=== PATIENT | female | born 1960 | race Caucasian/White ===

== ENCOUNTER 2016-06-30 22:32 | Observation (INO) | payer MEDICARE ==
[2016-06-30] MEDS ORDERED: ONDANSETRON HCL IV 4 MG/2 ML VIAL IV ONE (23:05)
[2016-06-30] MEDS ORDERED: 0.9 % SODIUM CHLORIDE 1,000 ML BAG IV ONE ×2 (23:05→23:57)
[2016-06-30 23:27] LABS: BASO % 0.1 % (0-6); EOS % 0.3 % (0-6); GRAN % 58.1 % (47-80); HEMATOCRIT 38.5 % (35.0-47.0); HEMOGLOBIN 12.4 gm/dl (11.6-16.0); LYMPH % 35.1 % (16-45); MEAN CELL VOLUME 87.3 fl (81-97); MEAN CORPUSCULAR HEMOGLOBIN 28.1 pg (27-33); MEAN CORPUSCULAR HGB CONC 32.2 g/dl (32-36); MONO % 6.4 % (0-9); PLATELET COUNT 324 K/uL (130-400); RED BLOOD COUNT 4.41 M/uL (3.80-5.40); RED CELL DISTRIBUTION WIDTH 14.6 % (11.5-14.5); WHITE BLOOD COUNT W/O DIFF 6.7 K/uL (4.2-12.2)
--- NOTE | 2016-06-30 23:29 | Emergency Department Record ---
History of Present Illness - General Chief complaint: Vomiting Stated complaint: COUGH AND VOMITING Time Seen by Provider: 06/30/16 23:05 Mode of Arrival: Ambulatory - History of Present Illness Initial comments: The patient states that she has had a cough for over a week which is not improving. Today she began having vomiting and diarrhea TNTC episodes of both since 2 p.m. and is feeling exhausted. She has a rash on the ventral abdomen and upper thighs which has been there a few days. She denies a history of MRSA. MD complaint: Diarrhea, Nausea, Vomiting Onset/Timin -: Hour(s) Description of Vomiting: Bilious Associated Abdominal Pain: Yes Severity scale (1-10): 7 Quality: Cramping Context: Sick contacts Associated Symptoms: Nausea/vomiting - Related Data Home Medications Medication Instructions Recorded Confirmed Last Taken Cranberry 500 mg PO DAILY 04/11/14 06/30/16 07/28/15 Diphenhydramine HCl [Benadryl] 25 mg PO BID 04/11/14 06/30/16 07/28/15 Multivitamin [Multi-Vitamin Daily] 1 each PO DAILY 04/11/14 06/30/16 07/27/15 Aspirin [Adult Low Dose Aspirin EC] 81 mg PO DAILY 06/30/16 06/30/16 Unknown Previous Rx's Medication Instructions Recorded Silver Sulfadiazine [Ssd] 1 apply TP BID #400 gm 04/29/16 Allergies Allergy/AdvReac Type Severity Reaction Status Date / Time ceftriaxone sodium Allergy Intermediate ITCHING Unverified 05/10/16 13:32 [From Rocephin] nitrofurantoin Allergy Intermediate RASH Unverified 05/10/16 13:32 [From Macrobid] nitrofurantoin Allergy Intermediate RASH Unverified 05/10/16 13:32 macrocrystalline [From Macrobid] Penicillins Allergy Mild ANAPHYLAXIS Unverified 05/10/16 13:32 Travel Screening - Travel/Exposure Within Last 30 Days Have you traveled within the last 30 days?: No Review of Systems Reviewed: No additional complaints except as noted below Constitutional: Reports: As per HPI. Denies: Chills, Fever, Malaise, Night sweats, Weakness, Weight change Eyes: Reports: As per HPI. Denies: Eye discharge, Eye pain, Photophobia, Vision change ENT: Reports: As per HPI. Denies: Congestion, Dental pain, Ear pain, Epistaxis , Hearing loss, Throat pain Respiratory: Reports: As per HPI. Denies: Cough, Dyspnea, Hemoptysis, Stridor, Wheezes Cardiovascular: Reports: As per HPI. Denies: Arrhythmia, Chest pain, Dyspnea on exertion, Edema, Murmurs, Orthopnea, Palpitations, Paroxysmal nocturnal dyspnea, Rheumatic Fever, Syncope Endocrine: Reports: As per HPI. Denies: Fatigue, Heat or cold intolerance, Polydipsia, Polyuria Gastrointestinal: Reports: As per HPI. Denies: Abdominal pain, Constipation, Diarrhea, Hematemesis, Hematochezia, Melena, Nausea, Vomiting Genitourinary: Reports: As per HPI. Denies: Abnormal menses, Discharge, Dyspareunia, Dysuria, Frequency, Hematuria, Incontinence, Retention, Urgency Musculoskeletal: Reports: As per HPI. Denies: Arthralgia, Back pain, Gout, Joint swelling, Myalgia, Neck pain Skin: Reports: As per HPI. Denies: Bruising, Change in color, Change in hair/ nails, Lesions, Pruritus, Rash Neurological: Reports: As per HPI. Denies: Abnormal gait, Confusion, Headache, Numbness, Paresthesias, Seizure, Tingling, Tremors, Vertigo, Weakness Psychiatric: Reports: As per HPI. Denies: Anxiety, Auditory hallucinations, Depression, Homicidal thoughts, Suicidal thoughts, Visual hallucinations Hematological/Lymphatic: Reports: As per HPI. Denies: Anemia, Blood Clots, Easy bleeding, Easy bruising, Swollen glands Past Medical History - SOCIAL HISTORY Smoking Status: Former smoker Alcohol Use: None Drug Use: None - RESPIRATORY Hx Respiratory Disorders: Yes Hx Sleep Apnea: Yes Hx of CPAP: Yes - CARDIOVASCULAR Hx Cardio Disorders: Yes Hx Cardiac Cath: Yes Hx Hypertension: Yes - NEURO Hx Neuro Disorders: Yes Hx Headaches: Yes - GI Hx GI Disorders: No - Hx Genitourinary Disorders: No - ENDOCRINE Hx Endocrine Disorders: Yes Hx Diabetes: Yes - MUSCULOSKELETAL Hx Musculoskeletal Disorders: Yes Comment:: hip problems - PSYCH Hx Psych Problems: Yes Hx Depression: Yes - HEMATOLOGY/ONCOLOGY Hx Hematology/Oncology Disorders: No Family Medical History Any Significant Family History?: Yes Hx Diabetes: Father, Mother, Brother/Sister Hx Heart Disease: Father, Mother Hx Kidney Disease: Father, Mother Hx Resp Disorders: Brother/Sister Physical Exam - General General Appearance: Alert, Oriented x3, Cooperative, Mild distress - Head Head exam: Normal inspection - Eye Eye exam: Normal appearance, PERRL Pupils: Normal accommodation - ENT ENT exam: Normal exam, Mucous membranes dry, Normal external ear exam, Normal orophraynx, TM's normal bilaterally Ear exam: Normal external inspection. negative: External canal tenderness Nasal Exam: Normal inspection. negative: Discharge, Sinus tenderness Mouth exam: Normal external inspection, Tongue normal Teeth exam: Normal inspection. negative: Dental caries Throat exam: Normal inspection. negative: Tonsillar erythema, Tonsillar exudate - Neck Neck exam: Normal inspection, Full ROM. negative: Tenderness - Respiratory Respiratory exam: Normal lung sounds bilaterally. negative: Respiratory distress - Cardiovascular Cardiovascular Exam: Regular rate, Normal rhythm, Normal heart sounds - GI/Abdominal GI/Abdominal exam: Soft, Normal bowel sounds. negative: Tenderness - Rectal Rectal exam: Deferred - exam: Deferred - Extremities Extremities exam: Normal inspection, Full ROM, Normal capillary refill. negative: Tenderness - Back Back exam: Reports: Normal inspection, Full ROM. Denies: Muscle spasm, Rash noted, Tenderness - Neurological Neurological exam: Alert, Normal gait, Oriented X3, Reflexes normal - Psychiatric Psychiatric exam: Normal affect, Normal mood - Skin Skin exam: Dry, Intact, Normal color, Rash (discrete lesions, a few with central pustules noted. No diffuse cellulitis.), Warm Course Vital Signs 06/30/16 22:51 Temperature 97.5 F L Pulse Rate 90 Respiratory 20 Rate Blood Pressure 113/81 Pulse Ox 96 - Reevaluation(s) Reevaluation #1: After 1 liter NS her headache has resolved and her nausea is gone. Second liter ordered along with CXR. 07/01/16 00:38 Reevaluation #2: Patient continues to be weak and uncomfortable. She states her is unable to care for her at home and she is too weak to ambulate. Will obs her and give Iv clindamycin for possible MRSA rash--culture still pending currently. 07/01/16 02:10 Medical Decision Making - Management Options MDM Management: Additional Work-up Planned (e.g. ADM/Transfer/OP Study) (OBS.) - Data Complexity MDM Data: Labs Ordered and/or Reviewed, X-Ray Ordered and/or Reviewed (CXR two view: Neg per ED physician.) - Lab Data Result diagrams: 06/30/16 23:15 06/30/16 23:15 Disposition Disposition: Admit Clinical Impression: Dehydration, Rash, Bronchitis Nausea & vomiting Qualifiers: Vomiting type: unspecified Vomiting Intractability: non-intractable Qualified Code(s): R11.2 - Nausea with vomiting, unspecified Diabetes Qualifiers: Diabetes mellitus type: type 1 Diabetes mellitus complication status: with unspecified complications Qualified Code(s): E10.8 - Type 1 diabetes mellitus with unspecified complications Disposition: Still a Patient at [facility] Decision to Admit: Admit from ER Decision to Admit Date: 07/01/16 Decision to Admit Time: 02:15 Accepting Physician: Dr. Hoover/ Sneha Tovar Condition: (2) Stable Forms: Patient Portal Access
[2016-06-30 23:33] LABS: ACETONE,SERUM NEGATIVE (NEGATIVE)
[2016-06-30 23:37] LABS: BLOOD UREA NITROGEN 17 mg/dL (7-17); CARBON DIOXIDE 21.4 mmol/L (22-30); CREATININE 0.8 mg/dL (0.52-1.04); EST GLOMERULAR FILTRATION RATE > 60 ml/min; GLUCOSE,RANDOM 195 mg/dL (70-110)
[2016-06-30 23:38] LABS: ALBUMIN 4.4 gm/dL (3.5-5.0); ALKALINE PHOSPHATASE 101 U/L (38-126); ALT/SGPT 61 U/L (9-52); ANION GAP 14.6 (7-16); AST/SGOT 28 U/L (14-36); BILIRUBIN,TOTAL 0.48 mg/dL (0.2-1.3); LACTIC ACID 3.7 mmol/L (0.7-2.1); LIPASE 31 U/L (23-300); TOTAL PROTEIN 7.5 gm/dL (6.3-8.2)
[2016-06-30] MEDS ORDERED: KETOROLAC 30 MG/ML VIAL IVP ONE (23:41)
[2016-07-01 00:24] LABS: URINE APPEARANCE CLEAR; URINE BILIRUBIN NEGATIVE (NEGATIVE); URINE BLOOD NEGATIVE (NEGATIVE); URINE COLOR YELLOW; URINE GLUCOSE (UA) NEGATIVE (NEGATIVE); URINE KETONE NEGATIVE (NEGATIVE); URINE LEUKOCYTE ESTERASE NEGATIVE (NEGATIVE); URINE NITRITE NEGATIVE (NEGATIVE); URINE UROBILINOGEN 0.2 E.U./dL (0.20 - 1.00)
[2016-07-01] MEDS ORDERED: SERTRALINE HCL 50 MG TABLET PO SCH (02:30)
[2016-07-01] MEDS ORDERED: ONDANSETRON HCL IV 4 MG/2 ML VIAL IVP PRN (02:54)
[2016-07-01] MEDS ORDERED: CLINDAMYCIN 600MG/4ML VIAL 600 MG in 0.9 % SODIUM CHLORIDE 100ML 100 ML IV SCH (02:54)
[2016-07-01] MEDS: 0.9 % SODIUM CHLORIDE 1000ML 1,000 ML IV PRN ×2 (03:26→12:39)
[2016-07-01] MEDS ORDERED: METFORMIN HCL 1000 MG PO SCH (10:00)
[2016-07-01] MEDS ORDERED: CRANBERRY 500 MG PO SCH (10:00)
[2016-07-01] MEDS ORDERED: GLIPIZIDE 10 MG PO SCH (10:00)
[2016-07-01] MEDS ORDERED: BUSPIRONE HCL 10 MG PO SCH (10:00)
[2016-07-01] MEDS ORDERED: KETOROLAC 60 MG/2 ML VIAL IVP STA (10:43)
[2016-07-01] MEDS: DIPHENHYDRAMINE HCL 25 MG CAPSULE PO SCH ×2 (11:15→21:32)
[2016-07-01] MEDS: BUSPIRONE 5 MG TABLET PO SCH ×2 (11:15→21:31)
[2016-07-01] MEDS: METOPROLOL SUCC 25 MG TAB.ER PO SCH (11:16)
[2016-07-01] MEDS: LEVOTHYROXINE SODIUM 25 MCG TABLET PO SCH (11:16)
[2016-07-01] MEDS: ASPIRIN 81 MG TABEC PO SCH (11:16)
[2016-07-01] MEDS: CLINDAMYCIN 600MG/50ML PREMIX 50 ML IV SCH ×4 (11:17→18:35)
[2016-07-01] MEDS: MULTIVITAMINS/MINERALS TABLET PO SCH (11:17)
[2016-07-01] MEDS: GLIPIZIDE 5 MG TABLET PO SCH ×2 (11:18→17:54)
[2016-07-01] MEDS: METFORMIN 500 MG TABLET PO SCH ×2 (11:18→21:52)
[2016-07-01] MEDS: SERTRALINE HCL 50 MG TABLET PO SCH (11:18)
--- NOTE | 2016-07-01 12:02 | History & Physical ---
History of Present Illness - Date of Service Date of Service for History & Physical: 07/01/16 - History of Present Illness Admitting Diagnosis: Dehydration, nausea, vomiting, bronchitis, rash, ? MRSA, Diabetes mellitus History of Present Illness: 55 yo female admitted w/ N/V/D. PMHx consists of DM2, bipolar 1 disorder, hypothyroidism, and CHERRY. Patient presented to emergency room after a few hours of n/v/diarrhea. patient states symptoms began out of nowhere. 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 associated symptoms include fever, chills, OLIVIER and rash. OLIVIER began after multiple episode of vomiting. patient felt exhausted and came to the ER for further medical management. Upon arrival to the ER, VSS. afebrile. CBC/CMP relatively unremarkable. glucose: 198. Lactic acid: 3.7, AST 28, ALT 61. CXR: NAP. UA: negative aside from specific gravity of 1.030. lipase normal. CX of open lesion. OLIVIER resolved after IVFs. Patient given IV anti emetic and started on IV cleocin for rash (possible MRSA). Patient admitted under observation for further medical management. This morning, patient is lying in bed comfortably. Her OLIVIER has returned and she' s requesting Toradol in her IV. No episodes of vomiting or diarrhea since arriving to the ER. She tolerated a liquid a breakfast. No fever, chills, abdominal pain, hematemesis, pruritis, melena, or hematochezia. no stool today. Per patient, rash is improving. No h/o MRSA. No sick contacts at home. denies recent travel. no recent antibiotic use or change in medications. Feeling more energetic after getting rest throughout the evening. PCP: Dr. Prather Travel Screening - Travel/Exposure Within Last 30 Days Have you traveled within the last 30 days?: No - Travel/Exposure Within Last Year Have you traveled outside the [place] in the last year?: No - Additonal Travel Details Have you been exposed to anyone with a communicable illness?: Yes Exposure Details:: Nausea, vomiting, rash from schoolchildren - Travel Symptoms Symptom Screening: Weakness, Vomiting, Rash - Additional Travel Comment Additional Travel/Exposure Comment: Pt volunteers time at an elementary school. She reports that two of the children that she escorted to the office had symptoms that resemeble hers. Review of Systems Constitutional: Reports: As per HPI. Denies: Chills, Fever, Malaise, Night sweats, Weakness, Weight change Eyes: Reports: As per HPI. Denies: Eye discharge, Eye pain, Photophobia, Vision change ENT: Reports: As per HPI. Denies: Congestion, Dental pain, Ear pain, Epistaxis , Hearing loss, Throat pain Respiratory: Reports: As per HPI. Denies: Cough, Dyspnea, Hemoptysis, Stridor, Wheezes Cardiovascular: Reports: As per HPI. Denies: Arrhythmia, Chest pain, Dyspnea on exertion, Edema, Murmurs, Orthopnea, Palpitations, Paroxysmal nocturnal dyspnea, Rheumatic Fever, Syncope Endocrine: Reports: As per HPI. Denies: Fatigue, Heat or cold intolerance, Polydipsia, Polyuria Gastrointestinal: Reports: As per HPI. Denies: Abdominal pain, Constipation, Diarrhea, Hematemesis, Hematochezia, Melena, Nausea, Vomiting Genitourinary: Reports: As per HPI. Denies: Abnormal menses, Discharge, Dyspareunia, Dysuria, Frequency, Hematuria, Incontinence, Retention, Urgency Musculoskeletal: Reports: As per HPI. Denies: Arthralgia, Back pain, Gout, Joint swelling, Myalgia, Neck pain Skin: Reports: As per HPI. Denies: Bruising, Change in color, Change in hair/ nails, Lesions, Pruritus, Rash Neurological: Reports: As per HPI. Denies: Abnormal gait, Confusion, Headache, Numbness, Paresthesias, Seizure, Tingling, Tremors, Vertigo, Weakness Psychiatric: Reports: As per HPI. Denies: Anxiety, Auditory hallucinations, Depression, Homicidal thoughts, Suicidal thoughts, Visual hallucinations Hematological/Lymphatic: Reports: As per HPI. Denies: Anemia, Blood Clots, Easy bleeding, Easy bruising, Swollen glands Past Medical History - SOCIAL HISTORY Smoking Status: Former smoker Alcohol Use: None Drug Use: None - RESPIRATORY Hx Respiratory Disorders: Yes Hx Sleep Apnea: Yes Hx of CPAP: Yes - CARDIOVASCULAR Hx Cardio Disorders: Yes Hx Cardiac Cath: Yes Hx Chest Pain: Yes Hx Hypertension: Yes - NEURO Hx Neuro Disorders: Yes Hx Headaches: Yes - GI Hx GI Disorders: No - Hx Genitourinary Disorders: No - ENDOCRINE Hx Endocrine Disorders: Yes Hx Diabetes: Yes Hx Thyroid Disease: Yes - MUSCULOSKELETAL Hx Musculoskeletal Disorders: Yes Comment:: hip problems - PSYCH Hx Psych Problems: Yes Hx Depression: Yes - HEMATOLOGY/ONCOLOGY Hx Hematology/Oncology Disorders: No Family Medical History Any Significant Family History?: Yes Hx Diabetes: Father, Mother, Brother/Sister Hx Heart Disease: Father, Mother Hx Kidney Disease: Father, Mother Hx Resp Disorders: Brother/Sister H&P Meds/Allergies - Allergies Allergies: Allergies Allergy/AdvReac Type Severity Reaction Status Date / Time ceftriaxone sodium Allergy Intermediate ITCHING Unverified 05/10/16 13:32 [From Rocephin] nitrofurantoin Allergy Intermediate RASH Unverified 05/10/16 13:32 [From Macrobid] nitrofurantoin Allergy Intermediate RASH Unverified 05/10/16 13:32 macrocrystalline [From Macrobid] Penicillins Allergy Mild ANAPHYLAXIS Unverified 05/10/16 13:32 - Home Medications Home Medications Medication Instructions Recorded Confirmed Last Taken Cranberry 500 mg PO DAILY 04/11/14 06/30/16 07/28/15 Diphenhydramine HCl [Benadryl] 25 mg PO BID 04/11/14 06/30/16 07/28/15 Multivitamin [Multi-Vitamin Daily] 1 each PO DAILY 04/11/14 06/30/16 07/27/15 Aspirin [Adult Low Dose Aspirin EC] 81 mg PO DAILY 06/30/16 06/30/16 Unknown Previous Rx's Medication Instructions Recorded Silver Sulfadiazine [Ssd] 1 apply TP BID #400 gm 04/29/16 - Active Medications Active Medications: Current Medications Aspirin (Ecotrin (Ec)) 81 mg PO DAILY [facility] Last Admin: 07/01/16 11:16 Dose: 81 mg Atorvastatin Calcium (Lipitor) 40 mg PO QHS [facility] Buspirone HCl (Buspar) 10 mg PO BID [facility] Last Admin: 07/01/16 11:15 Dose: 10 mg Diphenhydramine HCl (Benadryl Capsule) 25 mg PO BID [facility] Last Admin: 07/01/16 11:15 Dose: 25 mg Glipizide (Glucotrol) 10 mg PO BIDAC [facility] Last Admin: 07/01/16 11:18 Dose: 10 mg Sodium Chloride () 1,000 mls @ 125 mls/hr IV .Q8H PRN PRN Reason: LARGE VOLUME IV Last Admin: 07/01/16 03:26 Dose: 125 mls/hr Clindamycin Phosphate (Cleocin 600 Rp-[id number]) 50 mls @ 100 mls/hr IV Q8H [facility] Last Admin: 07/01/16 11:17 Dose: 100 mls/hr Levothyroxine Sodium (Synthroid) 25 mcg PO DAILYTHY [facility] Last Admin: 07/01/16 11:16 Dose: 25 mcg Metformin HCl (Glucophage Ir) 1,000 mg PO BID [facility] Last Admin: 07/01/16 11:18 Dose: 1,000 mg Metoprolol Succinate (Toprol Xl) 12.5 mg PO DAILY [facility] Last Admin: 07/01/16 11:16 Dose: 12.5 mg Montelukast Sodium (Singulair) 10 mg PO QHS [facility] Multivitamins/Minerals (Centrum) 1 tab PO DAILY [facility] Last Admin: 07/01/16 11:17 Dose: 1 tab Ondansetron HCl (Zofran) 4 mg IVP Q8H PRN PRN Reason: NAUSEA Sertraline HCl (Zoloft) 50 mg PO DAILY [facility] Last Admin: 07/01/16 11:18 Dose: 50 mg Physical Exam - Vital Signs Vital Signs: Vital Signs - Last 24 Hrs Temp Pulse Pulse Resp BP Pulse Ox 07/01/16 05:00 98.2 F 69 20 115/69 96 07/01/16 02:45 97.7 F 79 20 108/71 96 - General General Appearance: Alert, Oriented x3, Cooperative, No acute distress - Head Head exam: Normal inspection - Eye Eye exam: Normal appearance, PERRL Pupils: Normal accommodation - ENT ENT exam: Normal exam, Mucous membranes dry, Normal external ear exam, Normal orophraynx, TM's normal bilaterally Ear exam: Normal external inspection. negative: External canal tenderness Nasal Exam: Normal inspection. negative: Discharge, Sinus tenderness Mouth exam: Normal external inspection, Tongue normal Teeth exam: Normal inspection. negative: Dental caries Throat exam: Normal inspection. negative: Tonsillar erythema, Tonsillar exudate - Neck Neck exam: Normal inspection, Full ROM. negative: Tenderness - Respiratory Respiratory exam: Normal lung sounds bilaterally. negative: Respiratory distress - Cardiovascular Cardiovascular Exam: Regular rate, Normal rhythm, Normal heart sounds - GI/Abdominal GI/Abdominal exam: Soft, Normal bowel sounds. negative: Tenderness - Rectal Rectal exam: Deferred - exam: Deferred - Extremities Extremities exam: Normal inspection, Full ROM, Normal capillary refill. negative: Tenderness - Back Back exam: Reports: Normal inspection, Full ROM. Denies: Muscle spasm, Rash noted, Tenderness - Neurological Neurological exam: Alert, Normal gait, Oriented X3, Reflexes normal - Psychiatric Psychiatric exam: Normal affect, Normal mood - Skin Skin exam: Dry, Intact, Normal color, Rash (discrete lesions, a few with central pustules noted. No diffuse cellulitis.), Warm Results - Labs Result Diagrams: 06/30/16 23:15 06/30/16 23:15 VTE H&P Assessment - Risk for VTE Risk for VTE: Yes Risk Level: Moderate Risk Assessment Date: 07/01/16 Risk Assessment Time: 11:00 VTE Orders Placed or Will Be Placed: Yes Plan - Inpatient Certification Inpatient Certification: Admit to inpatient care: Based on my medical assessment, after consideration of patient's risk factors (age, co-morbidities and patient presenting symptoms and acuity), I expect that this patient will remain in the hospital greater than or equal to two midnights and that the services needed warrant inpatient care because: Patient Risk Factors: [] Estimated length of stay: [] The patient may reasonably be expected to be discharged or transferred to a hospital within 96 hours after admission to [facility]. Services needed: [] Post hospital care (if known): [] I certify that my determination is in accordance with my understanding of Medicare requirements for reasonable and necessary inpatient services. - Detailed Diagnosis and Plan (1) Dehydration Current Visit: Yes Status: Acute Base Code: E86.0 - DEHYDRATION Comment: 07/01/16: Continue 125 mls/hr of IVFs. Encouraged PO intake as tolerated. Anti emetics prn for N/V. Diarrhea, vomiting have resolved. (2) Diabetes Current Visit: Yes Status: Acute Qualifiers: Diabetes mellitus type: type 1 Diabetes mellitus complication status: with unspecified complications Qualified Code(s): E10.8 - Type 1 diabetes mellitus with unspecified complications Base Code: E11.9 - TYPE 2 DIABETES MELLITUS WITHOUT COMPLICATIONS Comment: 07/01/16: continue home medications (Metformin 1000 mg BID). Accu checks prn. I suspect glucose elevated on admission 2/2 vomiting up medication w/ viral illness. Diabetic diet encouraged. (3) Nausea & vomiting Current Visit: Yes Status: Acute Qualifiers: Vomiting type: unspecified Vomiting Intractability: non-intractable Qualified Code(s): R11.2 - Nausea with vomiting, unspecified Base Code: R11.2 - NAUSEA WITH VOMITING, UNSPECIFIED Comment: 07/01/16: viral vs. gastroparesis vs. other? electrolytes normal. diarrhea has resolved. Continue IV hydration. no N/V since admission. Monitor VS's q 8 hours. PO intake as tolerated. monitor for any fevers. anti emetics as needed. rest encouraged. (4) Rash Current Visit: Yes Status: Acute Base Code: R21 - RASH AND OTHER NONSPECIFIC SKIN ERUPTION Comment: 07/01/16: staph vs. MRSA vs. other? Continue Clindamycin IV. Await culture results. open lesion on right thigh covered. benadryl prn for pruritis. (5) Full code status Current Visit: No Status: Acute Base Code: Z78.9 - OTHER SPECIFIED HEALTH STATUS Comment: 07/01/16: patient is full code. (6) DVT prophylaxis Current Visit: Yes Status: Acute Base Code: [id number] - Comment: 07/01/16: moderate risk noting weight, decreased mobility. 40 mg of SQ lovenox daily.
[2016-07-01] MEDS ORDERED: ATORVASTATIN 20 MG TABLET PO SCH (22:00)
[2016-07-01] MEDS ORDERED: Non-Formulary MISC (Atorvastatin Calcium [Atorvastatin Calcium] 40 MG) PO SCH (22:00)
[2016-07-01] MEDS ORDERED: MONTELUKAST SODIUM 10MG TABLET PO SCH (22:00)
[2016-07-02] MEDS ORDERED: ACETAMINOPHEN 500 MG TABLET PO PRN (00:47)
[2016-07-02] MEDS: CLINDAMYCIN 600MG/50ML PREMIX 50 ML IV SCH ×4 (02:22→11:11)
[2016-07-02] MEDS: GLIPIZIDE 5 MG TABLET PO SCH (06:28)
[2016-07-02] MEDS: LEVOTHYROXINE SODIUM 25 MCG TABLET PO SCH (06:28)
[2016-07-02 06:46] LABS: BASO % 0.4 % (0-6); EOS % 1.3 % (0-6); HEMATOCRIT 33.3 % (35.0-47.0); HEMOGLOBIN 10.4 gm/dl (11.6-16.0); LYMPH % 35.1 % (16-45); MEAN CELL VOLUME 89.8 fl (81-97); MEAN CORPUSCULAR HGB CONC 31.2 g/dl (32-36); MEAN PLATELET VOLUME 8.9 fl (7.4-10.4); MONO % 8.2 % (0-9); PLATELET COUNT 243 K/uL (130-400); RED BLOOD COUNT 3.71 M/uL (3.80-5.40); RED CELL DISTRIBUTION WIDTH 14.6 % (11.5-14.5); WHITE BLOOD COUNT W/O DIFF 5.4 K/uL (4.2-12.2)
[2016-07-02 06:54] LABS: ALB/GLOB RATIO 1.2 (1.1-1.8); ALBUMIN 3.6 gm/dL (3.5-5.0); ALKALINE PHOSPHATASE 86 U/L (38-126); ALT/SGPT 54 U/L (9-52); ANION GAP 9.8 (7-16); AST/SGOT 24 U/L (14-36); BILIRUBIN,TOTAL 0.34 mg/dL (0.2-1.3); BLOOD UREA NITROGEN 11 mg/dL (7-17); CARBON DIOXIDE 23.2 mmol/L (22-30); CREATININE 0.8 mg/dL (0.52-1.04); EST GLOMERULAR FILTRATION RATE > 60 ml/min; GLUCOSE,RANDOM 139 mg/dL (70-110); TOTAL PROTEIN 6.5 gm/dL (6.3-8.2)
[2016-07-02] MEDS ORDERED: KETOROLAC 30 MG/ML VIAL IVP ONE (07:00)
[2016-07-02] MEDS: 0.9 % SODIUM CHLORIDE 1000ML 1,000 ML IV PRN (09:33)
[2016-07-02] MEDS: DIPHENHYDRAMINE HCL 25 MG CAPSULE PO SCH (09:35)
[2016-07-02] MEDS: ASPIRIN 81 MG TABEC PO SCH (09:38)
[2016-07-02] MEDS: MULTIVITAMINS/MINERALS TABLET PO SCH (09:38)
[2016-07-02] MEDS: BUSPIRONE 5 MG TABLET PO SCH (09:38)
[2016-07-02] MEDS: METFORMIN 500 MG TABLET PO SCH (09:39)
[2016-07-02] MEDS: METOPROLOL SUCC 25 MG TAB.ER PO SCH (09:40)
[2016-07-02] MEDS: SERTRALINE HCL 50 MG TABLET PO SCH (09:41)
[2016-07-02] MEDS ORDERED: ENOXAPARIN 40 MG/0.4 ML SYR SQ SCH (10:00)
--- NOTE | 2016-07-02 13:52 | Discharge Summary ---
Providers Discharge Summary Date: 07/02/16 Date of admission: 07/01/16 02:28 Expected Date of Discharge: 07/02/16 Attending physician: STIVEN PATEL Primary care physician: STIVEN PATEL Physical Exam - Vital Signs Vital Signs: Vital Signs - Last 24 Hrs Temp Pulse Pulse Resp BP Pulse Ox 07/02/16 09:00 74 64 18 07/02/16 08:45 97.8 F 64 18 118/71 98 07/02/16 05:00 97.7 F 73 20 101/61 95 07/01/16 21:00 74 07/01/16 20:30 98.6 F 76 20 115/73 96 - General General Appearance: Alert, Oriented x3, Cooperative, No acute distress - Head Head exam: Normal inspection - Eye Eye exam: Normal appearance, PERRL Pupils: Normal accommodation - ENT ENT exam: Normal exam, Mucous membranes dry, Normal external ear exam, Normal orophraynx, TM's normal bilaterally Ear exam: Normal external inspection. negative: External canal tenderness Nasal Exam: Normal inspection. negative: Discharge, Sinus tenderness Mouth exam: Normal external inspection, Tongue normal Teeth exam: Normal inspection. negative: Dental caries Throat exam: Normal inspection. negative: Tonsillar erythema, Tonsillar exudate - Neck Neck exam: Normal inspection, Full ROM. negative: Tenderness - Respiratory Respiratory exam: Normal lung sounds bilaterally. negative: Respiratory distress - Cardiovascular Cardiovascular Exam: Regular rate, Normal rhythm, Normal heart sounds - GI/Abdominal GI/Abdominal exam: Soft, Normal bowel sounds. negative: Tenderness - Rectal Rectal exam: Deferred - exam: Deferred - Extremities Extremities exam: Normal inspection, Full ROM, Normal capillary refill. negative: Tenderness - Back Back exam: Reports: Normal inspection, Full ROM. Denies: Muscle spasm, Rash noted, Tenderness - Neurological Neurological exam: Alert, Normal gait, Oriented X3, Reflexes normal - Psychiatric Psychiatric exam: Normal affect, Normal mood - Skin Skin exam: Dry, Intact, Normal color, Rash (discrete lesions, a few with central pustules noted. No diffuse cellulitis. healing well), Warm Hospitalization - Hospitalization Admission Diagnosis: dehydration - Problem List/Discharge Diagnosis (1) Dehydration Current Visit: Yes Status: Acute Base Code: E86.0 - DEHYDRATION Comment: 07/02/16: Adequate PO intake as outpatient. anti emetics as needed for nausea. glucose control (monitor at home). Diarrhea, nausea, & vomiting have resolved. (2) Diabetes Current Visit: Yes Status: Acute Discharge Diagnosis: Diabetes mellitus type: type 1 Diabetes mellitus complication status: with unspecified complications Qualified Code(s): E10.8 - Type 1 diabetes mellitus with unspecified complications Base Code: E11.9 - TYPE 2 DIABETES MELLITUS WITHOUT COMPLICATIONS Comment: 07/02/16: continue home medications (Metformin 1000 mg BID). monitor sugar level at home. diabetic diet. (3) Nausea & vomiting Current Visit: Yes Status: Acute Discharge Diagnosis: Vomiting type: unspecified Vomiting Intractability: non-intractable Qualified Code(s): R11.2 - Nausea with vomiting, unspecified Base Code : R11.2 - NAUSEA WITH VOMITING, UNSPECIFIED Comment: 07/02/16: viral vs. gastroparesis vs. other? electrolytes normal. diarrhea, n/V have resolved. Continue adequate hydration at home. . PO intake as tolerated. monitor for any fevers. anti emetics as needed. rest encouraged. (4) Rash Current Visit: Yes Status: Acute Base Code: R21 - RASH AND OTHER NONSPECIFIC SKIN ERUPTION Comment: 07/02/16: staph vs. MRSA vs. other? Culture pending. WBC normal. afebrile. Continue PO Clindamycin as outpatient. Benadryl as needed for pruritis. Follow up in office next week for hospital f/up appt. Patient agree' s to call Sunday to schedule an appt. She will return sooner re any new or worsening symptoms. (5) Full code status Current Visit: No Status: Acute Base Code: Z78.9 - OTHER SPECIFIED HEALTH STATUS Comment: 07/02/16: patient is full code. - Hospitalization Course Disposition: Home, Self-Care Hospital Course: 55 yo female admitted w/ N/V/D. PMHx consists of DM2, bipolar 1 disorder, hypothyroidism, and CHERRY. Patient presented to emergency room after a few hours of n/v/diarrhea. patient states symptoms began out of nowhere. 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 associated symptoms include fever, chills, OLIVIER and rash. OLIVIER began after multiple episode of vomiting. patient felt exhausted and came to the ER for further medical management. Upon arrival to the ER, VSS. afebrile. CBC/CMP relatively unremarkable. glucose: 198. Lactic acid: 3.7, AST 28, ALT 61. CXR: NAP. UA: negative aside from specific gravity of 1.030. lipase normal. CX of open lesion. OLIVIER resolved after IVFs. Patient given IV anti emetic and started on IV cleocin for rash (possible MRSA). Patient admitted under observation for further medical management. This morning, patient is lying in bed comfortably. Her OLIVIER has returned and she' s requesting Toradol in her IV. No episodes of vomiting or diarrhea since arriving to the ER. She tolerated a liquid a breakfast. No fever, chills, abdominal pain, hematemesis, pruritis, melena, or hematochezia. no stool today. Per patient, rash is improving. No h/o MRSA. No sick contacts at home. denies recent travel. no recent antibiotic use or change in medications. Feeling more energetic after getting rest throughout the evening. PCP: Dr. Patel 07/02/16: patient lying in bed comfortably. she states she feels much improved and is ready to go home. no n/v. slight OLIVIER this morning which improved with 30 mg of IV toradol. tolerated breakfast and lunch. normal bowel/bladder function. ambulating the room. no fever, chills. Abd/lower ext rash have improved. no pruritis. Abnormal Labs: Abnormal Lab Results 07/01/16 07/01/16 07/02/16 Range/Units 11:44 21:57 06:20 RBC 3.71 L (3.80-5.40) M/uL Hgb 10.4 L (11.6-16.0) gm/dl Hct 33.3 L (35.0-47.0) % MCHC 31.2 L (32-36) g/dl RDW 14.6 H (11.5-14.5) % POC Glucose 150 H 154 H (70-110) mg/dL Random Glucose (70-110) mg/dL Calcium (8.5-10.1) mg/dL ALT (9-52) U/L 07/02/16 07/02/16 Range/Units 06:20 11:57 RBC (3.80-5.40) M/uL Hgb (11.6-16.0) gm/dl Hct (35.0-47.0) % MCHC (32-36) g/dl RDW (11.5-14.5) % POC Glucose 158 H (70-110) mg/dL Random Glucose 139 H (70-110) mg/dL Calcium 8.2 L (8.5-10.1) mg/dL ALT 54 H (9-52) U/L Condition at Discharge: (1) Good Discharge Medications - Discharge Medications Prescriptions: Clindamycin HCl [Cleocin HCl] 300 mg PO Q8HR #21 capsule Ondansetron [Zofran Odt] 4 mg PO Q8H PRN #10 tab.rapdis PRN Reason: Nausea Home Medications: Ambulatory Orders Cranberry 500 mg PO DAILY 04/11/14 [Last Taken 07/28/15] Diphenhydramine HCl [Benadryl] 25 mg PO BID 04/11/14 [Last Taken 07/28/15] Multivitamin [Multi-Vitamin Daily] 1 each PO DAILY 04/11/14 [Last Taken 07/27/15 ] Silver Sulfadiazine [Silvadene Cream] 1 apply TP BID #400 gm 04/29/16 [Last Taken Unknown] Aspirin [Adult Low Dose Aspirin EC] 81 mg PO DAILY 06/30/16 [Last Taken Unknown] Clindamycin HCl [Cleocin HCl] 300 mg PO Q8HR #21 capsule 07/02/16 [Last Taken Unknown] Ondansetron [Zofran Odt] 4 mg PO Q8H PRN #10 tab.rapdis 07/02/16 [Last Taken Unknown] Discharge Plan - Discharge Instructions Activity at Discharge: Increase Activity as Tolerated Diet at Discharge: Diabetic Diet
--- NOTE | 2016-07-05 13:04 | RADIOLOGY REPORT ---
EXAM: CHEST HISTORY: COUGH. TECHNIQUE: Two views of the chest were obtained. Comparison: 01/28/16. FINDINGS: The heart is not enlarged and there is no mediastinal mass. There is no acute infiltrate or vascular congestion identified. IMPRESSION: UNREMARKABLE CHEST EXAMINATION. JOB NUMBER: [id number] MTDD
== END 2016-07-02 16:00 | disposition home or self-care (01) ==
LOC: ER 22:32 → INTOOBSV 07-01 02:28 → MEDSURG 07-01 02:28
PROVIDERS: ADMIT Family Medicine; ATTEND Family Medicine
DX: E86.0 Dehydration (principal); E11.9 Type 2 diabetes mellitus without complications; Z79.84 Long term (current) use of oral hypoglycemic drugs; R11.2 Nausea with vomiting, unspecified; R21 Rash and other nonspecific skin eruption; Z78.9 Other specified health status; F31.9 Bipolar disorder, unspecified; E03.9 Hypothyroidism, unspecified
CPT/HCPCS: 99285 ×2; 96374; 96375; 83605; 82800; 83690; 85025 ×2; 80076; 80048; 80053; 36416 ×2; 82009; 82948 ×2; 81003; 71020; G0378 ×2; J1885 ×2; J2405; J3490; 99217; 99220; J1650; J7030

== ENCOUNTER 2016-10-26 17:38 | Emergency (ER) | payer MEDICARE ==
--- NOTE | 2016-10-26 18:53 | Emergency Department Record ---
History of Present Illness - General Chief complaint: Vomiting Stated complaint: VOMITING/LOOSE STOOLS Time Seen by Provider: 10/26/16 18:34 Source: Patient Mode of Arrival: Ambulatory Limitations: No limitations - History of Present Illness Initial comments: The patient is here due to a 4-5 day hx of nausea, vomiting, and loose stools. She mainly now is having loose watery stools and has had 6-8 today. There is no reported fever, chills, or blood in the stool. The patient is having mild epigastric AP which started after the vomiting. She denies any bad food exposure or anyone else ill at home. The patient is having mild dysuria at times. MD complaint: Diarrhea, Nausea, Vomiting Onset/Timin -: Days(s) Description of Vomiting: Watery Description of Diarrhea: Water Consistency: Intermittent Improves with: None Worsens with: None Associated Symptoms: Denies other symptoms - Related Data Home Medications Medication Instructions Recorded Confirmed Last Taken Cranberry 500 mg PO DAILY 04/11/14 10/26/16 10/26/16 Diphenhydramine HCl [Benadryl] 25 mg PO BID 04/11/14 10/26/16 10/26/16 Multivitamin [Multi-Vitamin Daily] 1 each PO DAILY 04/11/14 10/26/16 10/26/16 Aspirin [Adult Low Dose Aspirin EC] 81 mg PO DAILY 06/30/16 10/26/16 10/26/16 Previous Rx's Medication Instructions Recorded Ondansetron [Zofran Odt] 4 mg SL .Q4-6H PRN #12 tab.rapdis 10/26/16 Sulfamethoxazole/Trimethoprim 1 tab PO BID #10 tab 10/26/16 [Bactrim Ds] Allergies Allergy/AdvReac Type Severity Reaction Status Date / Time ceftriaxone sodium Allergy Intermediate ITCHING Verified 10/26/16 18:01 [From Rocephin] nitrofurantoin Allergy Intermediate RASH Verified 10/26/16 18:01 [From Macrobid] nitrofurantoin Allergy Intermediate RASH Verified 10/26/16 18:01 macrocrystalline [From Macrobid] Penicillins Allergy Mild ANAPHYLAXIS Verified 10/26/16 18:01 Travel Screening - Travel/Exposure Within Last 30 Days Have you traveled within the last 30 days?: No - Travel/Exposure Within Last Year Have you traveled outside the [place] in the last year?: No - Additonal Travel Details Have you been exposed to anyone with a communicable illness?: No - Travel Symptoms Symptom Screening: None Review of Systems Constitutional: Denies: Chills, Fever Eyes: Denies: Eye discharge ENT: Denies: Congestion Respiratory: Denies: Cough, Dyspnea Genitourinary: Reports: Dysuria (very mild.) Past Medical History - SOCIAL HISTORY Smoking Status: Former smoker Alcohol Use: None Drug Use: None - RESPIRATORY Hx Respiratory Disorders: Yes Hx Sleep Apnea: Yes Hx of CPAP: Yes - CARDIOVASCULAR Hx Cardio Disorders: Yes Hx Cardiac Cath: Yes Hx Chest Pain: Yes Hx Hypertension: Yes - NEURO Hx Neuro Disorders: Yes Hx Headaches: Yes - GI Hx GI Disorders: No - Hx Genitourinary Disorders: No - ENDOCRINE Hx Endocrine Disorders: Yes Hx Diabetes: Yes Hx Thyroid Disease: Yes - MUSCULOSKELETAL Hx Musculoskeletal Disorders: Yes Comment:: hip problems - PSYCH Hx Psych Problems: Yes Hx Depression: Yes - HEMATOLOGY/ONCOLOGY Hx Hematology/Oncology Disorders: No Family Medical History Any Significant Family History?: Yes Hx Diabetes: Father, Mother, Brother/Sister Hx Heart Disease: Father, Mother Hx Kidney Disease: Father, Mother Hx Resp Disorders: Brother/Sister Physical Exam - General General Appearance: Alert, Oriented x3, Cooperative, No acute distress - Head Head exam: Atraumatic, Normocephalic, Normal inspection - Eye Eye exam: Normal appearance, PERRL - ENT Throat exam: Normal inspection. negative: Tonsillar erythema, Tonsillar exudate - Neck Neck exam: Normal inspection, Full ROM. negative: Tenderness - Respiratory Respiratory exam: Normal lung sounds bilaterally. negative: Respiratory distress - Cardiovascular Cardiovascular Exam: Regular rate, Normal rhythm, Normal heart sounds - GI/Abdominal GI/Abdominal exam: Soft, Normal bowel sounds. negative: Pulsatile mass, Rebound , Rigid, Tenderness - Extremities Extremities exam: Normal inspection, Full ROM, Normal capillary refill. negative: Tenderness - Back Back exam: Reports: Normal inspection, Full ROM. Denies: Muscle spasm, Rash noted, Tenderness - Neurological Neurological exam: Alert, Normal gait. negative: Abnormal gait, Motor sensory deficit Course Vital Signs 10/26/16 18:04 Temperature 98.3 F Pulse Rate 96 H Respiratory 20 Rate Blood Pressure 124/69 Pulse Ox 97 - Reevaluation(s) Reevaluation #1: The patient is doing much better at this time. She states the nausea is much improved and she denies any vomiting or AP. I did discuss the lab results and the plan for discharge when the fluids are done. Due to the patient having mild dysuria I will treat her for a mild UTI. The urine will not be cultured due to it clearly being contaminated. 10/26/16 19:43 Medical Decision Making - Lab Data Result diagrams: 10/26/16 18:55 10/26/16 18:55 Disposition Disposition: Discharge Clinical Impression: Gastroenteritis Disposition: Home, Self-Care Condition: (1) Good Instructions: Acute Nausea and Vomiting (ED) Additional Instructions: PLease drink plenty of fluids and take the Zofran and antibiotic as directed. Please see your PCP if not better tomorrow. Return to the ER for any increased pain, fever, vomiting, or diarrhea. Prescriptions: Sulfamethoxazole/Trimethoprim [Bactrim Ds] 1 tab PO BID #10 tab Ondansetron [Zofran Odt] 4 mg SL .Q4-6H PRN #12 tab.rapdis PRN Reason: Nausea Forms: Patient Portal Access Time of Disposition: 19:46
[2016-10-26] MEDS: 0.9 % SODIUM CHLORIDE 1,000 ML BAG IV ONE (18:59)
[2016-10-26] MEDS: ONDANSETRON HCL IV 4 MG/2 ML VIAL IV ONE (18:59)
[2016-10-26 19:07] LABS: BASO % 0.2 % (0-6); EOS % 0.7 % (0-6); GRAN % 62.1 % (47-80); HEMATOCRIT 40.8 % (35.0-47.0); HEMOGLOBIN 12.9 gm/dl (11.6-16.0); LYMPH % 31.8 % (16-45); MEAN CELL VOLUME 86.8 fl (81-97); MEAN CORPUSCULAR HEMOGLOBIN 27.4 pg (27-33); MEAN CORPUSCULAR HGB CONC 31.6 g/dl (32-36); MEAN PLATELET VOLUME 9.4 fl (7.4-10.4); MONO % 5.2 % (0-9); PLATELET COUNT 393 K/uL (130-400); RED CELL DISTRIBUTION WIDTH 14.7 % (11.5-14.5); URINE APPEARANCE CLEAR; URINE BILIRUBIN NEGATIVE (NEGATIVE); URINE BLOOD TRACE-I (NEGATIVE); URINE COLOR YELLOW; URINE GLUCOSE (UA) NEGATIVE (NEGATIVE); URINE KETONE TRACE (NEGATIVE); URINE LEUKOCYTE ESTERASE MODERATE (NEGATIVE); URINE NITRITE NEGATIVE (NEGATIVE); URINE PROTEIN TRACE (NEGATIVE); URINE UROBILINOGEN 0.2 E.U./dL (0.20 - 1.00); WHITE BLOOD COUNT W/O DIFF 12.9 K/uL (4.2-12.2)
[2016-10-26 19:17] LABS: URINE BACTERIA 1+; URINE EPITHELIAL CELLS 16 - 20 (FEW); URINE WBC 36 - 50 (0-2/hpf)
[2016-10-26 19:20] LABS: ALBUMIN 4.8 gm/dL (3.5-5.0); ALKALINE PHOSPHATASE 138 U/L (38-126); ALT/SGPT 28 U/L (9-52); ANION GAP 14.3 (7-16); AST/SGOT 23 U/L (14-36); BLOOD UREA NITROGEN 10 mg/dL (7-17); CARBON DIOXIDE 24.7 mmol/L (22-30); CREATININE 0.9 mg/dL (0.52-1.04); EST GLOMERULAR FILTRATION RATE > 60 ml/min; GLUCOSE,RANDOM 200 mg/dL (70-110); LIPASE 59 U/L (23-300); TOTAL PROTEIN 8.3 gm/dL (6.3-8.2)
== END 2016-10-26 20:12 | disposition home or self-care (01) ==
LOC: ER 17:38
DX: K52.9 Noninfective gastroenteritis and colitis, unspecified (principal); R11.2 Nausea with vomiting, unspecified; N39.0 Urinary tract infection, site not specified; I10 Essential (primary) hypertension
CPT/HCPCS: 99284 ×2; 96374; 96361; 83690; 85025; 80076; 80048; 81001; J2405; J7030

== ENCOUNTER 2017-10-20 18:42 | Emergency (ER) | payer MEDICARE ==
[2017-10-20] MEDS: 0.9 % SODIUM CHLORIDE 1000ML 1,000 ML IV SCH (19:00)
--- NOTE | 2017-10-20 19:03 | Emergency Department Record ---
History of Present Illness - General Stated complaint: VOMITING Time Seen by Provider: 10/20/17 18:44 Source: Patient Mode of Arrival: Ambulatory Limitations: No limitations - History of Present Illness Initial comments: 57 yo female presents to ED for evaluation of nausea, vomiting, and loose stools that began approximately 20 hours ago. Patient does report associated diffuse abdominal pain, denies fevers/chills or urinary symptoms. Patient is s/ p criss, appy, and x 4. Patient also reports a history of "fast and slow heart beats" and DM II. MD complaint: Abdominal pain, Diarrhea, Nausea, Vomiting Onset/Timin -: Hour(s) Description of Vomiting: Bilious Associated Abdominal Pain: Yes Location: Diffuse Radiation: None Severity: Moderate Quality: Cramping Consistency: Constant Improves with: None Worsens with: None Associated Symptoms: Nausea/vomiting - Related Data Previous Rx's Medication Instructions Recorded Hyoscyamine Sulfate [Levsin-Sl] 0.25 mg SL Q8H PRN #15 tab.subl 10/20/17 Ondansetron [Zofran Odt] 4 mg PO Q8H PRN #15 tab.rapdis 10/20/17 Allergies Allergy/AdvReac Type Severity Reaction Status Date / Time ceftriaxone sodium Allergy Intermediate ITCHING Unverified 08/29/17 13:02 [From Rocephin] nitrofurantoin Allergy Intermediate RASH Unverified 08/29/17 13:02 [From Macrobid] nitrofurantoin Allergy Intermediate RASH Unverified 08/29/17 13:02 macrocrystalline [From Macrobid] Penicillins Allergy Mild ANAPHYLAXIS Unverified 08/29/17 13:02 Review of Systems Constitutional: Denies: Chills, Fever, Malaise, Night sweats Eyes: Denies: Eye discharge, Eye pain ENT: Denies: Congestion, Ear pain Respiratory: Denies: Cough, Dyspnea Cardiovascular: Denies: Chest pain, Dyspnea on exertion Endocrine: Reports: Fatigue. Denies: Heat or cold intolerance Gastrointestinal: Reports: Abdominal pain, Diarrhea, Nausea, Vomiting Genitourinary: Denies: Incontinence, Retention Musculoskeletal: Denies: Arthralgia, Back pain Skin: Denies: Bruising, Change in color Neurological: Denies: Abnormal gait, Confusion, Headache Psychiatric: Denies: Anxiety Hematological/Lymphatic: Denies: Anemia, Blood Clots Past Medical History - SOCIAL HISTORY Smoking Status: Former smoker Drug Use: None - RESPIRATORY Hx Respiratory Disorders: Yes Hx Sleep Apnea: Yes Hx of CPAP: Yes - CARDIOVASCULAR Hx Cardio Disorders: Yes Hx Cardiac Cath: Yes Hx Chest Pain: Yes Hx Hypertension: Yes - NEURO Hx Neuro Disorders: Yes Hx Headaches: Yes - GI Hx GI Disorders: No - Hx Genitourinary Disorders: No - ENDOCRINE Hx Endocrine Disorders: Yes Hx Diabetes: Yes Hx Thyroid Disease: Yes - MUSCULOSKELETAL Hx Musculoskeletal Disorders: Yes Comment:: hip problems - PSYCH Hx Psych Problems: Yes Hx Depression: Yes - HEMATOLOGY/ONCOLOGY Hx Hematology/Oncology Disorders: No Family Medical History Hx Diabetes: Father, Mother, Brother/Sister Hx Heart Disease: Father, Mother Hx Kidney Disease: Father, Mother Hx Resp Disorders: Brother/Sister Physical Exam - General General Appearance: Alert, Oriented x3, Cooperative, Moderate distress Limitations: No limitations - Head Head exam: Atraumatic, Normocephalic, Normal inspection Head exam detail: negative: Abrasion, Contusion, Street's sign, General tenderness, Hematoma, Laceration - Eye Eye exam: Normal appearance. negative: Conjunctival injection, Periorbital swelling, Periorbital tenderness, Scleral icterus - ENT Ear exam: negative: Auricular hematoma, Auricular trauma Nasal Exam: negative: Active bleeding, Discharge, Dried blood, Foreign body Mouth exam: negative: Drooling, Laceration, Muffled voice, Tongue elevation - Neck Neck exam: Normal inspection. negative: Meningismus, Tenderness - Respiratory Respiratory exam: Normal lung sounds bilaterally. negative: Respiratory distress, Rhonchi, Stridor, Wheezes - Cardiovascular Cardiovascular Exam: Normal rhythm, Normal heart sounds, Tachycardia - GI/Abdominal GI/Abdominal exam: Soft, Tenderness (Diffuse TTP, no rebound, guarding, or peritoneal signs on examination). negative: Rebound, Rigid - Rectal Rectal exam: Deferred - exam: Deferred - Extremities Extremities exam: Normal inspection. negative: Calf tenderness, Pedal edema, Tenderness - Back Back exam: Denies: CVA tenderness (R), CVA tenderness (L) - Neurological Neurological exam: Alert, Normal gait, Oriented X3 - Psychiatric Psychiatric exam: Normal affect, Normal mood - Skin Skin exam: Normal color. negative: Abrasion Type of lesion: negative: abrasion Course - Reevaluation(s) Reevaluation #1: 10/20/17 21:06 Labs reviewed, Glucose 256 with AG 21, CO2 20. Labs are otherwise grossly unremarkable for an acute process. Reevaluation #2: 10/20/17 21:56 CT Abdomen and Pelvis: No acute process, fluid-filled loops of bowel. Patient was updated on all results, appears stable for discharge at this time on Lomotil over the counter, Levsin, and Zofran as directed for her symptoms. Medical Decision Making - Lab Data Result diagrams: 10/20/17 19:05 10/20/17 19:05 Disposition Disposition: Discharge Clinical Impression: Diarrhea Qualifiers: Diarrhea type: unspecified type Qualified Code(s): R19.7 - Diarrhea, unspecified Disposition: Home, Self-Care Condition: (2) Stable Instructions: Acute Diarrhea (ED) Additional Instructions: Return to ED if your symptoms worsen or if you have any concerns. Levsin and Zofran as directed. Follow-up with your family doctor in 1-3 days as directed. Prescriptions: Hyoscyamine Sulfate [Levsin-Sl] 0.25 mg SL Q8H PRN #15 tab.subl PRN Reason: Abdominal Pain Ondansetron [Zofran Odt] 4 mg PO Q8H PRN #15 tab.rapdis PRN Reason: Nausea/Vomiting Time of Disposition: 22:03 Quality - Quality Measures Quality Measures: N/A - Blood Pressure Screening Does Patient Have Any of the Following: No Blood Pressure Classification: Pre-Hypertensive BP Reading Systolic Measurement: 146 Diastolic Measurement: 85 Screening for High Blood Pressure: < Pre-Hypertensive BP, F/U Documented > [ [id number]] Pre-Hypertensive Follow-up Interventions: Referral to alternative/primary care provider.
[2017-10-20 19:16] LABS: HEMATOCRIT 43.2 % (35.0-47.0); HEMOGLOBIN 13.4 gm/dl (11.6-16.0); MEAN CELL VOLUME 88.7 fl (81-97); MEAN CORPUSCULAR HEMOGLOBIN 27.5 pg (27-33); MEAN PLATELET VOLUME 9.1 fl (7.4-10.4); PLATELET COUNT 360 K/uL (130-400); RED BLOOD COUNT 4.87 M/uL (3.80-5.40); RED CELL DISTRIBUTION WIDTH 15.5 % (11.5-14.5); WHITE BLOOD COUNT W/O DIFF 11.6 K/uL (4.2-12.2)
[2017-10-20] MEDS: ONDANSETRON HCL IV 4 MG/2 ML VIAL IVP ONE (19:16)
[2017-10-20] MEDS: HYOSCYAMINE SULFATE ODT 0.125 MG TAB.SUBL SL ONE (19:17)
[2017-10-20 19:24] LABS: URINE BILIRUBIN NEGATIVE (NEGATIVE); URINE BLOOD NEGATIVE (NEGATIVE); URINE COLOR YELLOW; URINE GLUCOSE (UA) NEGATIVE (NEGATIVE); URINE KETONE NEGATIVE (NEGATIVE); URINE LEUKOCYTE ESTERASE NEGATIVE (NEGATIVE); URINE NITRITE NEGATIVE (NEGATIVE); URINE UROBILINOGEN 0.2 E.U./dL (0.20 - 1.00)
[2017-10-20 19:33] LABS: URINE APPEARANCE SL CLOUDY
[2017-10-20 19:42] LABS: URINE AMORPHOUS SEDIMENT 2+; URINE BACTERIA FEW; URINE EPITHELIAL CELLS 0 - 2 (FEW); URINE RBC 0 - 2 (NONE SEEN); URINE WBC 0 - 2 (0-2/hpf)
[2017-10-20 20:51] LABS: BLOOD UREA NITROGEN 15 mg/dL (6-20); CREATININE 0.8 mg/dL (0.5-0.9); EST GLOMERULAR FILTRATION RATE > 60 mL/min; TOTAL PROTEIN 7.8 g/dL (6.6-8.7)
[2017-10-20 20:54] LABS: GLUCOSE,RANDOM 256 mg/dL (74-109)
[2017-10-20 20:56] LABS: ALB/GLOB RATIO 1.3 (1.1-1.8); ALBUMIN 4.4 g/dL (4.0-5.0); ALKALINE PHOSPHATASE 111 U/L (35-104); ALT/SGPT 35 U/L (<33); AST/SGOT 32 U/L (10.0-35.0); LIPASE 52 U/L (13-60)
--- NOTE | 2017-10-21 21:57 | CT SCAN REPORT ---
EXAM: CT SCAN ABDOMEN/PELVIS W CONTRAST HISTORY: LOWER ABDOMINAL PAIN WITH NAUSEA AND VOMITING FOR THE PAST DAY. TECHNIQUE: Standard CT imaging of the abdomen and pelvis was performed with intravenous contrast. 100 mL of Omnipaque-300 were administered. COMPARISON: 07/28/2015. FINDINGS: There is minor dependent atelectasis at both lung bases. The lung bases are otherwise clear. There is mild fatty infiltration of the liver. There are no focal hepatic abnormalities. The gallbladder is surgically absent. The biliary tree, pancreas, and spleen are normal. A small right adrenal adenoma is again noted and is unchanged. The left adrenal gland is unremarkable. There is a stable small fat-containing angiomyolipoma at the inferior pole of the right kidney. This measures 1 cm in diameter. The kidneys and ureters are otherwise normal. The aorta is normal in caliber. There is no dissection. There is no lymphadenopathy. The large and small bowel loops are fluid filled throughout. There is no obstruction or focal inflammatory process. There is no pneumoperitoneum or ascites. The stomach and epigastrium are unremarkable. There are tiny fat- containing supraumbilical and umbilical hernias. These are unchanged. The uterus is surgically absent. The urinary bladder is normal. There are no acute osseous abnormalities. IMPRESSION: 1. NO ACUTE INTRAABDOMINAL PATHOLOGY. 2. STABLE 1 CM RIGHT RENAL ANGIOMYOLIPOMA. 3. STABLE RIGHT ADRENAL ADENOMA. 4. MILD FATTY INFILTRATION OF THE LIVER. 4. ADDITIONAL CHRONIC FINDINGS ABOVE. JOB NUMBER: [id number] MTDD
== END 2017-10-20 22:17 | disposition home or self-care (01) ==
LOC: ER 18:42
DX: R19.7 Diarrhea, unspecified (principal); R11.2 Nausea with vomiting, unspecified; E11.9 Type 2 diabetes mellitus without complications; I10 Essential (primary) hypertension; Z87.891 Personal history of nicotine dependence
CPT/HCPCS: 74177; 80053; 81001; 83690; 85027; 96361; 96374; 99284; J2405; J7030

== ENCOUNTER 2019-08-26 19:54 | Emergency (ER) | payer MEDICARE ==
--- NOTE | 2019-08-26 20:10 | Emergency Department Record ---
History of Present Illness - General Chief Complaint: Flu Like Symptoms Stated Complaint: FLU LIKE SYMPTOMS Time Seen by Provider: 08/26/19 20:00 Source: Patient Mode of Arrival: Ambulatory Limitations: No limitations - History of Present Illness Initial Comments: 59 yo female presents with cough, congestion, sore throat, body aches, watery eyes. She states the onset was about 2 days ago. No blood in the sputum. She reports she has allergies and asthma. She has body aches and it hurts to cough. No nausea, vomiting or diarrhea. She did have a flu shot. She feels like she has some swollen glands as well. No rash. PCP is Mirna Galvez NP, MD Complaint: Cough, Nasal congestion, Rhinorrhea, Sore throat -: Days(s) (2) Severity: Moderate Quality: Aching Consistency: Constant Improves With: Other Worsens With: Other (Coughing) Context: Sick contacts Associated Symptoms: Chills, Cough, Fever, Hoarseness, Nasal congestion, Rhinorrhea, Sore throat Treatments Prior to Arrival: Other - Related Data Home Medications Medication Instructions Recorded Confirmed Last Taken Fluconazole [Diflucan] 150 mg PO ONCE PRN 08/26/19 08/26/19 Unknown Furosemide [Lasix] 20 mg PO ONCE PRN 08/26/19 08/26/19 Unknown Previous Rx's Medication Instructions Recorded Azithromycin [Zithromax] 250 mg PO DAILY #4 tab 08/26/19 Allergies Allergy/AdvReac Type Severity Reaction Status Date / Time ceftriaxone sodium Allergy Intermediate ITCHING Unverified 07/17/19 15:12 [From Rocephin] nitrofurantoin Allergy Intermediate RASH Unverified 07/17/19 15:12 [From Macrobid] nitrofurantoin Allergy Intermediate RASH Unverified 07/17/19 15:12 macrocrystalline [From Macrobid] Penicillins Allergy Mild ANAPHYLAXIS Unverified 07/17/19 15:12 Review of Systems Constitutional: Reports: Chills, Fever. Denies: Weakness Eyes: Denies: Eye discharge ENT: Reports: Congestion, Ear pain, Throat pain Respiratory: Reports: Cough, Dyspnea. Denies: Hemoptysis, Wheezes Cardiovascular: Denies: Chest pain, Edema, Palpitations, Syncope Endocrine: Denies: Fatigue, Polydipsia, Polyuria Gastrointestinal: Denies: Abdominal pain, Diarrhea, Nausea, Vomiting Genitourinary: Denies: Dysuria, Urgency Musculoskeletal: Denies: Arthralgia, Back pain, Joint swelling, Myalgia, Neck pain Skin: Denies: Bruising, Change in color, Rash Neurological: Denies: Confusion, Headache Psychiatric: Denies: Anxiety Hematological/Lymphatic: Denies: Easy bleeding, Easy bruising Past Medical History - SOCIAL HISTORY Smoking Status: Former smoker Alcohol Use: None Drug Use: None - RESPIRATORY Hx Respiratory Disorders: Yes Hx Sleep Apnea: Yes Hx of CPAP: Yes - CARDIOVASCULAR Hx Cardio Disorders: Yes Hx Cardiac Cath: Yes Hx Chest Pain: Yes Hx Hypertension: Yes - NEURO Hx Neuro Disorders: Yes Hx Headaches: Yes - GI Hx GI Disorders: No - Hx Genitourinary Disorders: No - ENDOCRINE Hx Endocrine Disorders: Yes Hx Diabetes: Yes Hx Thyroid Disease: Yes - MUSCULOSKELETAL Hx Musculoskeletal Disorders: Yes Comment:: hip problems - PSYCH Hx Psych Problems: Yes Hx Depression: Yes - HEMATOLOGY/ONCOLOGY Hx Hematology/Oncology Disorders: No Family Medical History Any Significant Family History?: Yes Hx Diabetes: Father, Mother, Brother/Sister Hx Heart Disease: Father, Mother Hx Kidney Disease: Father, Mother Hx Resp Disorders: Brother/Sister Physical Exam - General General Appearance: Alert, Oriented x3, Cooperative, No acute distress Limitations: No limitations - Head Head exam: Atraumatic, Normal inspection - Eye Eye exam: Normal appearance. negative: Conjunctival injection - ENT ENT exam: Normal exam, Mucous membranes moist, Normal orophraynx, TM's normal bilaterally. negative: Mucous membranes dry Ear exam: Normal external inspection Nasal Exam: Normal inspection Mouth exam: Normal external inspection Teeth exam: Normal inspection Throat exam: Tonsillar erythema. negative: Normal inspection, Tonsillomegaly, Tonsillar exudate, R peritonsillar mass, L peritonsillar mass - Neck Neck exam: Normal inspection, Full ROM, Lymphadenopathy (mild), Tenderness (mild upper cervical LN tenderness, no significantly enlarged glands). negative: Meningismus - Respiratory Respiratory exam: Rhonchi (few scattered, no conversational dyspnea, normal work of breathing). negative: Normal lung sounds bilaterally, Accessory muscle use, Prolonged expiratory, Stridor, Wheezes - Cardiovascular Cardiovascular Exam: Regular rate, Normal rhythm, Normal heart sounds - GI/Abdominal GI/Abdominal exam: Soft. negative: Tenderness - Rectal Rectal exam: Deferred - exam: Deferred - Extremities Extremities exam: negative: Calf tenderness, Pedal edema - Back Back exam: Denies: CVA tenderness (R), CVA tenderness (L) - Neurological Neurological exam: Alert, Oriented X3 - Psychiatric Psychiatric exam: Normal affect, Normal mood - Skin Skin exam: Dry, Intact, Normal color, Warm Course - Reevaluation(s) Reevaluation #1: 08/26/19 20:39 The Influenza is negative We discussed home care, reasons to return to the ED for an immediate recheck and follow up with her PCP Disposition Disposition: Discharge Clinical Impression: Bronchitis Disposition: Home, Self-Care Condition: (1) Good Instructions: Acute Bronchitis (ED) Additional Instructions: Review this ER visit and the tests performed with your family doctor Call your doctor for the next available follow up appointment Return to the ER for a recheck immediately if worse, any new concerns or questions Take the prescriptions provided as directed Prescriptions: Azithromycin [Zithromax] 250 mg PO DAILY #4 tab Forms: Patient Portal Access Time of Disposition: 20:24 Quality - Quality Measures Quality Measures: N/A - Blood Pressure Screening Does Patient Have Any of the Following: Active Dx of HTN Blood Pressure Classification: Normal BP Reading Systolic Measurement: 95 Diastolic Measurement: 66 Screening for High Blood Pressure: Patient Exclusion, Hx of HTN [G9744]
[2019-08-26 20:21] LABS: INFLUENZA A NEGATIVE (NEGATIVE); INFLUENZA B NEGATIVE (NEGATIVE)
[2019-08-26] MEDS ORDERED: AZITHROMYCIN 500 MG TABLET PO ONE (20:23)
== END 2019-08-26 20:27 | disposition home or self-care (01) ==
LOC: ER 19:54
DX: J20.9 Acute bronchitis, unspecified (principal); I10 Essential (primary) hypertension; E11.9 Type 2 diabetes mellitus without complications
CPT/HCPCS: 87400; 99283